=== PATIENT | male | born 1950 | race Caucasian/White ===

== ENCOUNTER 2017-03-24 19:30 | Outpatient (CLI) | END 2017-03-24 19:31 | disposition short-term general hospital (02) | LOC: AMBL 19:30 | PROVIDERS: ATTEND Family Medicine | DX: R53.1 Weakness (principal); E66.9 Obesity, unspecified ==

== ENCOUNTER 2018-03-04 19:21 | Emergency (ER) | payer OTHER ==
--- NOTE | 2018-03-04 19:51 | ED.PDOC ---
Procedures - Intubation Time of Intubation: 19:22 Type of Tube Used: Endotracheal Tube Size: 8 Cricoid Pressure Used: No Tube Servin Used: Yes Position of Tube at Lip: 22 Number of Attempts: 1 Suction Used: Yes Glidescope Used: No CO2 Detector Used: Yes Lung Sounds Equal Bilaterally: Yes Intubation Complications: Present: No complications Tube Placement Verified by X-ray: Yes
--- NOTE | 2018-03-04 19:53 | DI ---
EXAMINATION: AP portable chest radiograph. HISTORY: Cardiac arrest, endotracheal tube placement FINDINGS: Prior studies are not available for comparison. Endotracheal tube ends midway between clav icles and the vnice. A left internal jugular venous access port catheter ends near the cavoatrial j unction. A multilumen right internal jugular venous access catheter ends near the cavoatrial junctio n. The lungs are clear. The aorta is normal in caliber. The heart size is normal. The bones a re intact. No pneumothorax or pleural effusions are detected. IMPRESSION: No acute cardiopulmonary disease. Endotracheal tube in satisfactory position. Left internal jugular venous access port catheter in the right multilumen internal jugular venous acc ess port catheter in place.
--- NOTE | 2018-03-04 19:54 | ED.PDOC ---
General ED Provider: Dr. LUIS EDUARDO GERBER-ER Chief Complaint: Cardiac Arrest Stated Complaint: had seizure and stopped breathing--family initiated cpr-- medics indicated patient was pulseless(pea rythym) Time Seen by Physician: 19:25 Mode of Arrival: Ambulance Information Source: Family, EMT Exam Limitations: Altered mental status Nursing and Triage Documentation Reviewed and Agree: Yes Does patient meet sepsis criteria?: No System Inflammatory Response Syndrome: Not Applicable Sepsis Protocol: For patient's 13 years and over: Temp is 96.8 and below OR 101 and greater Pulse >90 BPM Resp >20/minute Acutely Altered Mental Status Are patient's symptoms suggestive of a new infection, such as: -Pneumonia -Skin, Soft Tissue -Endocarditis -UTI -Bone, Joint Infection -Implantable Device -Acute Abdominal Infection -Wound Infection -Meningitis -Blood Stream Catheter Infection -Unknown Cardiac Resuscitation - Cardiac Resuscitation/Physical Exam Onset/Duration: Unknown Witnessed Arrest: Yes Airway Prehospital Findings: Reports: Patent Breathing Prehospital Findings: Reports: Apnea Circulation/Rhythm Prehospital Findings: Reports: Pulses absent Disability/Neurological Prehospital Findings: Reports: Unresponsive Breathing Prehospital Intervention: Reports: Oxygen Circulation/Rhythm Prehospital Intervention: Reports: Chest compressions Circulation/Rhythm Prehospital Response: Present: Pulses absent Airway ED Findings: Patent Breathing ED Findings: Present: Apnea Circulation/Rhythm ED Findings: Present: Pulses absent Disability/Neurological ED Findings: Present: Unresponsive Circulation/Rhythm ED Intervention: Chest compressions Circulation/Rhythm ED Response: Present: Pulses present Right Pupil: Fixed Left Pupil: Fixed EMS/Code Sheet Reviewed: Yes Differential Diagnoses: Acute MA, Asystole, Card. Rhythm Disturbance, PEA, Respiratory Failure, Sudden Past Medical History - Past Medical History Previously Healthy: No Endocrine: Reports: Other Cardiovascular: Reports: Other Respiratory: Reports: Other Hematological: Reports: Unknown Gastrointestinal: Reports: Unknown Genitourinary: Reports: CKD Neuro/Psych: Reports: Other Musculoskeletal: Reports: Other Cancer: Reports: Other - Surgical History General Surgical History: Reports: Unknown - Family History Family History: Reports: Unknown Interpretation - Radiology Interpretation Radiology Interpretation By: Radiologist Radiology Results: Negative Exam Interpreted: CXR Procedures - Intubation Indication: Present: Altered Mental Status Type of Tube Used: Endotracheal Tube Size: 8 Cricoid Pressure Used: Yes Tube Servin Used: Yes Number of Attempts: 1 Suction Used: Yes Glidescope Used: Yes CO2 Detector Used: Yes Lung Sounds Equal Bilaterally: Yes Intubation Complications: Present: No complications Tube Inserted By: carmen roberts Tube Placement Verified by X-ray: Yes Critical Care Note - Critical Care Note Total Time (mins): 30 Course - Course Orders, Labs, Meds: Orders Category Date Time Status CHEST, 1V AP ONLY Stat RADS 03/04/18 19:32 Completed Departure - Departure Time of Disposition: 19:58 Disposition: Discharge Problem: Cardiac arrest Condition: Pt referred to PMD for follow-up: Yes IPMP verified?: No Disposition Discussed With: Family
[2018-03-04] MEDS ORDERED: EPINEPHRINE 1 MG/10 ML SYRINGE IV STA ×4 (19:59→20:00)
[2018-03-04] MEDS ORDERED: SODIUM BICARBONATE 7.5% IVP STA ×2 (20:00→20:01)
[2018-03-04 20:15] VITALS: BP 00/00; TEMP 97
[2018-03-05 10:33] VITALS: BMI 73.7
== END 2018-03-04 22:10 | disposition expired ==
LOC: ED 19:21
DX: I46.9 Cardiac arrest, cause unspecified (principal); R56.9 Unspecified convulsions
CPT/HCPCS: 31500; 96374; 96375; 99291